=== PATIENT | female | born 1970 | race Caucasian/White ===

== ENCOUNTER → 2020-10-17 | Outpatient (CLI) | payer OTHER ==
[~2020-10-17] MED LIST: BACTRIM DS TAB1 EACH PO; DOCUSATE SODIU250 MG PO; FLAGYL500 MG PO; IRON 100 PLUS1 EACH PO; MULTIVITAMINS1 EAC1 PO; NEURONTIN100 MG PO; PERCOCET 7.5-31 EACH PO; PROTONIX40 MG PO; VITAMIN C1000 MG PO; ZANAFLEX4 MG PO; ZOFRAN4 MG PO; ZOLOFT25 MG PO
== END ==
LOC: RAD 10-12 09:00
DX: K44.9 Diaphragmatic hernia without obstruction or gangrene (principal); R07.89 Other chest pain; K21.00 Gastro-esophageal reflux disease with esophagitis, without bleeding
CPT/HCPCS: 74220

== ENCOUNTER 2021-06-07 06:26 | Emergency (ER) | payer OTHER ==
[2021-06-07 07:46] LABS: RED BLOOD COUNT 4.16 M/UL (4.00-5.10)
[2021-06-07 08:41] LABS: BUN/CREATININE RATIO 16 (0-10)
[2021-06-07] MEDS ORDERED: IBUPROFEN600 MG PO (09:21)
== END 2021-06-07 09:54 | disposition home or self-care (01) ==
LOC: ER1 06:26
PROVIDERS: Nurse Practitioner
DX: M54.50 Low back pain, unspecified (principal); R10.9 Unspecified abdominal pain; G89.29 Other chronic pain; R10.814 Left lower quadrant abdominal tenderness; R10.816 Epigastric abdominal tenderness; Z88.0 Allergy status to penicillin; Z88.1 Allergy status to other antibiotic agents; Z79.82 Long term (current) use of aspirin
CPT/HCPCS: 80053; 81001; 82550; 82553; 83874; 84484; 85025; 93005; 96374; 96375; 99284; J2270; J2405; Q9967